=== PATIENT | female | born 1990 | race Caucasian/White ===

== ENCOUNTER 2017-03-23 16:47 | Emergency (ER) | payer OTHER ==
[~2017-03-23] VITALS: Ht 172.7 cm; Wt 72.6 kg
[2017-03-23] MEDS ORDERED: NORETHINDRONE 0.35 MG PO (17:21)
[2017-03-23 17:57] LABS: *BILIRUBIN,URIN NEGATIVE (NEGATIVE); *BLOOD, URINE 3+ (NEGATIVE); *COLOR,URINE YELLOW (YELLOW); *KETONES,URINE NEGATIVE (NEGATIVE); *PROTEIN,URINE NEGATIVE (NEGATIVE); *UROBILINOGEN,URINE 0.2 E.U./dl (NORMAL); LEUKOCYTE ESTERASE ,URINE NEGATIVE (NEGATIVE); NITRITE, URINE NEGATIVE (NEGATIVE); PH,URINE 5.5 (5.0-8.0); UGLUCOSE NEGATIVE (NEGATIVE)
[2017-03-23 18:04] LABS: BASOPHILS # (AUTO) 0.1 K/uL (0.0-8.0); BASOPHILS % (AUTO) 1.3 % (0.0-2.0); EOSINOPHILS # (AUTO) 0.5 K/uL (0.0-0.7); HEMATOCRIT 42.1 % (37-47); LYMPHOCYTES # (AUTO) 2.3 K/UL (0.8-4.8); MEAN CORPUSCULAR HEMOGLOBIN 31.3 UUG (27.0-31.0); MEAN CORPUSCULAR HGB CONC 33 g/dL (32.0-37.0); MEAN CORPUSCULAR VOLUME 93.9 FL (81.0-99.0); MONOCYTES # (AUTO) 0.5 K/UL (0.1-1.30); MONOCYTES % (AUTO) 5.9 % (0.0-11.0); NEUTROPHILS # (AUTO) 4.3 K/UL (1.8-8.9); NEUTROPHILS % (AUTO) 56.8 % (38.5-71.5); PLATELET COUNT (AUTO) 274 K/UL (150-450); RED BLOOD CELL COUNT(AUTO) 4.48 MIL/UL (4.2-5.4); WHITE BLOOD COUNT (AUTO) 7.7 K/UL (4.0-11.2)
[2017-03-23 18:10] LABS: *URINE HCG, QUAL NEGATIVE (NEGATIVE)
[2017-03-23 18:20] LABS: *CLARITY,URINE SLIGHTLY CLOUDY (CLEAR)
[2017-03-23 18:24] LABS: BACTERIA,URINE MODERATE /HPF (NONE SEEN); MUCUS,URINE MANY /LPF (0-FEW); RBC,URINE 20-50 /HPF (0-3); SQUAMOUS EPITHELIAL CELL,UR MODERATE /HPF (NONE SEEN); WBC,URINE 0-3 /HPF (0-3)
--- NOTE | 2017-03-23 20:12 | NUR ---
Ultrasound with scant free fluid, no IUP, no clear etiology of bleeding. Hb 14. Has OB followup this week. Will dc with naproxen and tranexamic acid. Does not smoke.
--- NOTE | 2017-03-23 20:17 | NUR ---
MSE COMPLETED. PT D/C'D HOME, ACI/RX X2 GIVEN. PT AMBULATED W/O DIFF/TOOJK ALL BELONGINGS.
[2017-03-23 20:19] VITALS: BP 112/74
== END 2017-03-23 20:19 | disposition home or self-care (01) ==
LOC: ER 16:50
DX: N92.1 Excessive and frequent menstruation with irregular cycle (principal)
CPT/HCPCS: 36415; 76856; 81001; 84703; 85025; 99285; A4663

== ENCOUNTER 2017-12-28 12:06 | Emergency (ER) | payer OTHER ==
[~2017-12-28] VITALS: Ht 172.7 cm; Wt 75.7 kg
[~2017-12-28 12:06] MED LIST: NORETHINDRONE 0.35 MG PO
--- NOTE | 2017-12-28 12:42 | NUR ---
Patient discharged to home in stable conditon. Written and verbal after care instructions given. Patient verbalizes understanding of instructions.
== END 2017-12-28 12:43 | disposition home or self-care (01) ==
LOC: ER 12:10
DX: J06.9 Acute upper respiratory infection, unspecified (principal); Z79.899 Other long term (current) drug therapy
CPT/HCPCS: 99283; A4663

== ENCOUNTER 2018-01-24 12:20 | Emergency (ER) | payer OTHER ==
[~2018-01-24] VITALS: Ht 172.7 cm; Wt 75.7 kg
[2018-01-24] MEDS ORDERED: ALTAVERA (12:27)
[2018-01-24] MEDS ORDERED: KETOROLAC TROMETHAMINE 60 MG INJ IM ONE ×2 (12:42→12:45)
[2018-01-24 12:47] LABS: *BILIRUBIN,URIN NEGATIVE (NEGATIVE); *BLOOD, URINE Trace-intact (NEGATIVE); *CLARITY,URINE CLEAR (CLEAR); *COLOR,URINE YELLOW (YELLOW); *KETONES,URINE NEGATIVE (NEGATIVE); *PROTEIN,URINE NEGATIVE (NEGATIVE); *UROBILINOGEN,URINE 0.2 E.U./dl (NORMAL); LEUKOCYTE ESTERASE ,URINE TRACE (NEGATIVE); NITRITE, URINE NEGATIVE (NEGATIVE); UGLUCOSE NEGATIVE (NEGATIVE)
[2018-01-24 12:48] LABS: *URINE HCG, QUAL NEGATIVE (NEGATIVE); BACTERIA,URINE FEW /HPF (NONE SEEN); RBC,URINE 0-3 /HPF (0-3); SQUAMOUS EPITHELIAL CELL,UR FEW /HPF (NONE SEEN); WBC,URINE 0-3 /HPF (0-3)
--- NOTE | 2018-01-24 13:22 | NUR ---
Patient discharged to home in stable conditon. Written and verbal after care instructions given. Patient verbalizes understanding of instructions.
== END 2018-01-24 13:22 | disposition home or self-care (01) ==
LOC: ER 12:23
DX: N83.202 Unspecified ovarian cyst, left side (principal); N83.201 Unspecified ovarian cyst, right side; Z79.899 Other long term (current) drug therapy
CPT/HCPCS: 76856; 81001; 84703; 96372; 99285; A4663; J1885

== ENCOUNTER 2018-11-21 14:39 | Emergency (ER) | payer MEDICAID, OTHER ==
[~2018-11-21] VITALS: Ht 172.7 cm; Wt 75.7 kg
[~2018-11-21 14:39] MED LIST changes: +ALTAVERA; -NORETHINDRONE 0.35 MG PO
--- NOTE | 2018-11-21 15:19 | NUR ---
[facility] ART AT BEDSIDE FOR MSE.
[2018-11-21] MEDS ORDERED: IBUPROFEN 800 MG TABLET ONE (15:28)
[2018-11-21] MEDS ORDERED: IBUPROFEN 800 MG TABLET PO ONE (15:30)
--- NOTE | 2018-11-21 15:32 | NUR ---
US TECH AT BEDSIDE.
--- NOTE | 2018-11-21 15:42 | NUR ---
Female airplane inspector (Leana) accompanied female patient for US.
[2018-11-21 15:50] LABS: *BILIRUBIN,URIN NEGATIVE (NEGATIVE); *BLOOD, URINE NEGATIVE (NEGATIVE); *CLARITY,URINE CLEAR (CLEAR); *COLOR,URINE YELLOW (YELLOW); *KETONES,URINE NEGATIVE (NEGATIVE); *UROBILINOGEN,URINE 0.2 E.U./dl (NORMAL); LEUKOCYTE ESTERASE ,URINE NEGATIVE (NEGATIVE); NITRITE, URINE NEGATIVE (NEGATIVE); PH,URINE 8.5 (5.0-8.0); UGLUCOSE NEGATIVE (NEGATIVE)
[2018-11-21 15:53] LABS: BACTERIA,URINE NONE SEEN /HPF (NONE SEEN); RBC,URINE 0-3 /HPF (0-3); SQUAMOUS EPITHELIAL CELL,UR FEW /HPF (NONE SEEN)
[2018-11-21 15:54] LABS: *URINE HCG, QUAL NEGATIVE (NEGATIVE)
--- NOTE | 2018-11-21 16:23 | NUR ---
Patient discharged to home in stable conditon. Written and verbal after care instructions given. Patient verbalizes understanding of instructions. ALL BELONGINGS W/ PT. PT SELF-AMBULATED W/O DIFFICULTY.
[2018-11-21 16:24] VITALS: BP 112/66
== END 2018-11-21 16:25 | disposition home or self-care (01) ==
LOC: ER 14:39
DX: N83.202 Unspecified ovarian cyst, left side (principal); Z79.899 Other long term (current) drug therapy
CPT/HCPCS: 84703; A4663

== ENCOUNTER 2019-03-21 23:26 | Emergency (ER) | payer MEDICAID ==
[~2019-03-21] VITALS: Ht 172.7 cm; Wt 73.0 kg
--- NOTE | 2019-03-21 23:34 | NUR ---
Patient ambulated with stable gait. A/Ox4. Patient came for c/o left elbow pain s/p fall accident at home when she missed a step going down her staris. Denies LOC.
--- NOTE | 2019-03-21 23:35 | NUR ---
ERMD at bedside for MSE
[2019-03-21] MEDS ORDERED: ONDANSETRON ODT 4 MG TAB.RAPDIS ONE (23:43)
[2019-03-21] MEDS ORDERED: OXYCODONE/APAP 5-325 MG TABLET ONE (23:43)
[2019-03-21] MEDS ORDERED: OXYCODONE/APAP 5-325 MG TABLET PO ONE (23:45)
[2019-03-21] MEDS ORDERED: ONDANSETRON ODT 4 MG TAB.RAPDIS SL ONE (23:45)
--- NOTE | 2019-03-22 00:06 | NUR ---
Patient discharged to home in stable conditon. Written and verbal after care instructions given. Patient verbalizes understanding of instructions. Patient ambulated with stable gait. Instructed that she may not drive, and stated that her boyfriend/ will be driving her home.
[2019-03-22 00:09] VITALS: BP 110/71
== END 2019-03-22 00:10 | disposition home or self-care (01) ==
LOC: ER 23:28
DX: S50.02XA Contusion of left elbow, initial encounter (principal); Z79.899 Other long term (current) drug therapy; W20.8XXA Other cause of strike by thrown, projected or falling object, initial encounter; Y93.89 Activity, other specified; Y92.89 Other specified places as the place of occurrence of the external cause; Y99.8 Other external cause status
CPT/HCPCS: 73080; A4663; Q0162

== ENCOUNTER 2020-03-17 15:53 | Emergency (ER) | payer MEDICAID ==
[~2020-03-17] VITALS: Ht 172.7 cm; Wt 77.1 kg
[2020-03-17 16:15] LABS: *BILIRUBIN,URIN NEGATIVE (NEGATIVE); *BLOOD, URINE NEGATIVE (NEGATIVE); *CLARITY,URINE CLEAR (CLEAR); *COLOR,URINE YELLOW (YELLOW); *KETONES,URINE NEGATIVE (NEGATIVE); *UROBILINOGEN,URINE 0.2 E.U./dl (NORMAL); LEUKOCYTE ESTERASE ,URINE NEGATIVE (NEGATIVE); NITRITE, URINE NEGATIVE (NEGATIVE); UGLUCOSE NEGATIVE (NEGATIVE)
--- NOTE | 2020-03-17 16:15 | NUR ---
pending MD evaluation
[2020-03-17 16:16] LABS: *URINE HCG, QUAL NEG (NEGATIVE)
--- NOTE | 2020-03-17 16:18 | NUR ---
Dr [email or web address], medical screening exam in progress
[2020-03-17 16:50] LABS: BASOPHILS # (AUTO) 0.1 K/uL (0.0-8.0); BASOPHILS % (AUTO) 1.1 % (0.0-2.0); EOSINOPHILS # (AUTO) 0.2 K/uL (0.0-0.7); EOSINOPHILS % (AUTO) 2.7 % (0.0-7.0); HEMOGLOBIN 12.5 g/dL (10.9-14.3); LYMPHOCYTES # (AUTO) 2.1 K/uL (20.0-40.0); LYMPHOCYTES % (AUTO) 27.2 % (20.5-51.5); MEAN CORPUSCULAR HEMOGLOBIN 31.7 uug (24.7-32.8); MEAN CORPUSCULAR HGB CONC 34 g/dL (32.3-35.6); MEAN CORPUSCULAR VOLUME 93.8 fL (75.5-95.3); MONOCYTES # (AUTO) 0.5 K/uL (2.0-10.0); NEUTROPHILS # (AUTO) 4.7 K/uL (1.8-8.9); PLATELET COUNT (AUTO) 202 K/uL (179-408); RED BLOOD CELL COUNT(AUTO) 3.95 MIL/uL (3.63-4.92); WHITE BLOOD COUNT (AUTO) 7.5 K/uL (3.8-11.8)
[2020-03-17 16:58] LABS: BILIRUBIN,DIRECT 0.1 mg/dL (0.0-0.2); BILIRUBIN,TOTAL 0.3 mg/dL (0.2-1.0); POTASSIUM 4.4 mmol/L (3.5-5.1); TOTAL PROTEIN, SERUM 6.4 g/dL (6.4-8.2)
[2020-03-17] MEDS ORDERED: SWABABLE VALVE TRANSFER SET EA MC ONE (17:01)
[2020-03-17] MEDS ORDERED: IV NORMAL SALINE 250 ML IV ONE (17:01)
[2020-03-17] MEDS ORDERED: IOHEXOL 300MG/ML 100 ML INFUS..BTL ONE (17:01)
--- NOTE | 2020-03-17 19:23 | NUR ---
IV removed. Catheter intact and site benign. Pressure and 4x4 gauze applied to site. No bleeding noted.
--- NOTE | 2020-03-17 19:24 | NUR ---
Patient discharged to home in stable condition. Written and verbal after care instructions given. Patient verbalizes understanding of instructions. Stressed follow up or return to ER for worsening s/s. aa/ox4. able to speak in complete sentences in stable condition respirations even and unlabored ambulatory with steady gait all belongings with pt
[2020-03-17 19:33] VITALS: BP 110/78
== END 2020-03-17 19:30 | disposition home or self-care (01) ==
LOC: ER 15:55
DX: R10.12 Left upper quadrant pain (principal)
CPT/HCPCS: 36415; 74177; 76856; 80048; 80076; 81001; 83690; 84703; 85025; 99285; Q9967; A4663; J7050

== ENCOUNTER 2021-02-12 00:06 | Emergency (ER) | payer MEDICAID, OTHER ==
[~2021-02-12] VITALS: Ht 172.7 cm; Wt 83.5 kg
--- NOTE | 2021-02-12 00:31 | NUR ---
Pt provided urine sample, sent to lab. Dr. Carrasquillo at bedside for MSE.
[2021-02-12] MEDS ORDERED: IV NS 1000 ML 1,000 ML IV ONE (00:45)
[2021-02-12] MEDS ORDERED: CEFTRIAXONE 1 G in IV DEXTROSE 5% 50 ML IV ONE (00:45)
[2021-02-12] MEDS ORDERED: OXYCODONE/APAP 5-325 MG TABLET PO ONE (00:45)
[2021-02-12 00:55] LABS: *BILIRUBIN,URIN NEGATIVE (NEGATIVE); *BLOOD, URINE 2+ (NEGATIVE); *COLOR,URINE YELLOW (YELLOW); *KETONES,URINE NEGATIVE (NEGATIVE); *UROBILINOGEN,URINE 0.2 E.U./dl (NORMAL); LEUKOCYTE ESTERASE ,URINE TRACE (NEGATIVE); NITRITE, URINE NEGATIVE (NEGATIVE); UGLUCOSE NEGATIVE (NEGATIVE)
[2021-02-12 00:58] LABS: *CLARITY,URINE HAZY (CLEAR)
[2021-02-12 01:06] LABS: HEMATOCRIT 37.2 % (31.2-41.9); MEAN CORPUSCULAR HEMOGLOBIN 31.9 uug (24.7-32.8); MEAN CORPUSCULAR VOLUME 93.6 fL (75.5-95.3); PLATELET COUNT (AUTO) 243 K/uL (179-408)
[2021-02-12] MEDS ORDERED: OXYCODONE/APAP 5-325 MG TABLET ONE (01:07)
[2021-02-12] MEDS ORDERED: CEFTRIAXONE /D5W 50ML IVPB **ER PYXIS IV ONE (01:08)
[2021-02-12 01:13] LABS: *URINE HCG, QUAL NEGATIVE (NEGATIVE); BACTERIA,URINE FEW /HPF (NONE SEEN); SQUAMOUS EPITHELIAL CELL,UR MODERATE /HPF (NONE SEEN)
[2021-02-12 01:27] LABS: POTASSIUM 3.8 mmol/L (3.5-5.1)
[2021-02-12] MEDS ORDERED: OXYC-128 PO (01:33)
--- NOTE | 2021-02-12 01:40 | NUR ---
IV removed. Catheter intact and site benign. Pressure and 4x4 gauze applied to site. No bleeding noted. Patient discharged to home in stable condition. Written and verbal after care instructions given. Patient verbalizes understanding of instructions. Stressed follow up or return to ER for worsening s/s. Patient A&O x4, ambulating with steady gait. Patient's fiance outside of ED to take patient home.
[2021-02-12 02:15] VITALS: BP 121/66
== END 2021-02-12 01:40 | disposition home or self-care (01) ==
LOC: ER 00:08
DX: N30.90 Cystitis, unspecified without hematuria (principal)
CPT/HCPCS: 36415; 84703; 85025; 87077; 87086; A4663; J0696; J7030

== ENCOUNTER 2021-06-21 16:19 | Emergency (ER) | payer OTHER ==
[~2021-06-21] VITALS: Ht 172.7 cm; Wt 83.5 kg
[~2021-06-21 16:19] MED LIST changes: +OXYC-128 PO
[2021-06-21] MEDS ORDERED: MAG HYDROX/AL HYDROX/SIMETH 30 ML LIQUID UDC PO ONE (16:30)
[2021-06-21] MEDS ORDERED: FAMOTIDINE. 20 MG/2 ML VIAL IV ONE ×2 (16:30→16:44)
[2021-06-21] MEDS ORDERED: IV NORMAL SALINE 1000 ML BAG IV ONE (16:30)
[2021-06-21] MEDS ORDERED: LIDOCAINE VISCUS 2% 15 ML UDC MM ONE (16:30)
[2021-06-21] MEDS ORDERED: MAG HYDROX/AL HYDROX/SIMETH 30 ML LIQUID UDC ONE ×2 (16:43→17:00)
[2021-06-21] MEDS ORDERED: LIDOCAINE VISCUS 2% 15 ML UDC ONE ×2 (16:43→17:01)
[2021-06-21] MEDS ORDERED: PANT20TA2 PO (16:44)
[2021-06-21] MEDS ORDERED: SUCR1TAB PO (16:44)
[2021-06-21] MEDS ORDERED: ONDA4TAB5 PO (16:44)
[2021-06-21 16:52] LABS: *BILIRUBIN,URIN NEGATIVE (NEGATIVE); *BLOOD, URINE NEGATIVE (NEGATIVE); *CLARITY,URINE CLEAR (CLEAR); *COLOR,URINE YELLOW (YELLOW); *KETONES,URINE NEGATIVE (NEGATIVE); *URINE HCG, QUAL NEG (NEGATIVE); *UROBILINOGEN,URINE 0.2 E.U./dl (NORMAL); LEUKOCYTE ESTERASE ,URINE TRACE (NEGATIVE); NITRITE, URINE NEGATIVE (NEGATIVE); PH,URINE 8.5 (5.0-8.0); UGLUCOSE NEGATIVE (NEGATIVE)
[2021-06-21 16:59] LABS: HEMATOCRIT 36.9 % (31.2-41.9); MEAN CORPUSCULAR VOLUME 92.9 fL (75.5-95.3); PLATELET COUNT (AUTO) 231 K/uL (179-408)
[2021-06-21 17:05] LABS: CREATININE 0.8 mg/dL (0.6-1.3)
[2021-06-21 17:15] LABS: BILIRUBIN,DIRECT 0.1 mg/dL (0.0-0.2); BILIRUBIN,TOTAL 0.2 mg/dL (0.2-1.0); TOTAL PROTEIN, SERUM 6.8 g/dL (6.4-8.2)
--- NOTE | 2021-06-21 17:35 | NUR ---
Patient discharged to home in stable condition. Written and verbal after care instructions given. Patient verbalizes understanding of instructions. Stressed follow up or return to ER for worsening s/s.pt says feels better.
[2021-06-21 18:08] VITALS: BP 110/64
[2021-06-21 18:31] LABS: BACTERIA,URINE MODERATE /HPF (NONE SEEN); RBC,URINE 0-3 /HPF (0-3); SQUAMOUS EPITHELIAL CELL,UR MODERATE /HPF (NONE SEEN)
== END 2021-06-21 17:35 | disposition home or self-care (01) ==
LOC: ER 16:19
DX: R10.13 Epigastric pain (principal)
CPT/HCPCS: 36415; 71045; 80048; 80076; 81001; 83690; 84484; 84703; 85025; 87086; 93005; 96361; 96374; 99285; J3490; 70030-TC; A4663; J7030

== ENCOUNTER 2025-01-16 20:50 | Emergency (ER) | payer OTHER ==
[~2025-01-16] VITALS: Ht 172.7 cm; Wt 70.3 kg
[~2025-01-16 20:50] MED LIST changes: +ONDA4TAB5 PO; +PANT20TA2 PO; +SUCR1TAB PO
[2025-01-16] MEDS ORDERED: ONDANSETRON 4 MG/2 ML VIAL ONE (22:29)
[2025-01-16] MEDS ORDERED: PIPERACILLIN/TAZOBACTAM/D5W 50 ML IV ONE (22:29)
[2025-01-16] MEDS ORDERED: HYDROMORPHONE 1 MG/1 ML DISP.SYRIN ONE (22:30)
[2025-01-16 22:32] LABS: PLATELET COUNT (AUTO) 230 K/uL (179-408); RED BLOOD CELL COUNT(AUTO) 4.47 MIL/uL (3.63-4.92); RED CELL DISTRIBUTION WIDTH 13.1 % (12.3-17.7); WHITE BLOOD COUNT (AUTO) 9.8 K/uL (3.8-11.8)
[2025-01-16] MEDS: HYDROMORPHONE 1 MG/1 ML DISP.SYRIN IV ONE (22:35)
[2025-01-16] MEDS: ONDANSETRON 4 MG/2 ML VIAL IV ONE (22:35)
[2025-01-16 22:39] LABS: CREATININE 0.9 mg/dL (0.6-1.3); SODIUM SERUM 137.0 mmol/L (136-145); UREA NITROGEN, BLOOD 13.0 mg/dL (7-18)
[2025-01-16] MEDS: PIPERACILLIN SODIUM/TAZOBACTAM 3.375 G in IV DEXTROSE 5% 50 ML IV ONE (22:48)
[2025-01-16] MEDS ORDERED: ONDA4TAB11 PO (23:12)
[2025-01-16] MEDS ORDERED: OXYC-133 PO (23:12)
[2025-01-16 23:53] VITALS: BP 122/72; O2SAT 99
== END 2025-01-16 23:47 | disposition home or self-care (01) ==
LOC: ER 20:50
DX: H60.92 Unspecified otitis externa, left ear (principal); R59.0 Localized enlarged lymph nodes; Z79.899 Other long term (current) drug therapy; Z87.09 Personal history of other diseases of the respiratory system; Z87.39 Personal history of other diseases of the musculoskeletal system and connective tissue
CPT/HCPCS: 36415; 85025; A4606; A4663; J1171; J2405; J2543